=== PATIENT | female | born 1930 | race Caucasian/White ===

== ENCOUNTER 2019-01-14 16:51 | Inpatient (IN) | payer OTHER, MEDICAID ==
[~2019-01-14] VITALS: Ht 152.4 cm; Wt 56.7 kg
[2019-01-14 17:08] VITALS: BP_SYST 155
[2019-01-14 18:02] LABS: ANION GAP 9 (5-15); CALCIUM 8.9 mg/dL (8.4-11.0); CHLORIDE 107 mmol/L (98-107); CREATININE 1.35 mg/dL (0.55-1.30); GLUCOSE 112 mg/dL (70-99); POTASSIUM 4.8 mmol/L (3.5-5.1); SODIUM SERUM 141 mmol/L (136-145); UREA NITROGEN, BLOOD 43 mg/dL (8-21)
[2019-01-14 18:05] LABS: PROTHROMBIN TIME 10.4 SECS (9.5-12.5)
[2019-01-14 18:10] LABS: ALANINE AMINOTRANSFERASE 15 U/L (12-78); ALBUMIN 3.4 g/dL (3.4-4.8); ASPARTATE AMINOTRANSFERASE 13 U/L (10-37); TOTAL BILIRUBIN 0.1 mg/dL (0.0-1.0)
[2019-01-14 18:22] LABS: RED BLOOD CELL COUNT(AUTO) 3.69 MIL/uL (4.2-6.2); WHITE BLOOD COUNT (AUTO) 6.9 K/uL (4.8-10.8)
[2019-01-14 18:23] LABS: HEMATOCRIT 34.3 % (36-48); HEMOGLOBIN 11.1 g/dL (12.0-16.0); LYMPHOCYTES % (AUTO) 27.4 % (20.5-51.5); MEAN CORPUSCULAR HEMOGLOBIN 30 pg (27-31); MEAN CORPUSCULAR HGB CONC 32 % (32-36); MEAN CORPUSCULAR VOLUME 93 fL (79.0-98.0); MONOCYTES % (AUTO) 8.7 % (1.7-9.3); PLATELET COUNT (AUTO) 283 K/uL (130-430); RED CELL DISTRIBUTION WIDTH 13.3 % (9.0-15.0)
[2019-01-14 18:24] LABS: BASOPHILS # (AUTO) 0.1 K/uL (0.0-0.2); BASOPHILS % (AUTO) 1.2 % (0.0-2.0); EOSINOPHILS # (AUTO) 0.5 K/uL (0.0-0.4); EOSINOPHILS % (AUTO) 6.7 % (0.0-4.0); LYMPHOCYTES # (AUTO) 1.9 K/uL (1.0-5.5); MONOCYTES # (AUTO) 0.6 K/uL (0.0-1.0); NEUTROPHILS # (AUTO) 3.9 K/uL (1.8-7.7)
--- NOTE | 2019-01-14 19:07 | NUR ---
Placed in room 2 . Placed on phototypesetting equipment monitor, blood pressure machine and pulse oximeter. To gown for exam. Side rails up.
--- NOTE | 2019-01-14 19:07 | NUR ---
Pt c/o generalized weakness and decreased appetite that has been getting worse over the past couple of weeks. Pt also c/o pain to bilat knees, feet, and shoulders progressively worsening.
[2019-01-14] MEDS ORDERED: ICOS1CAP PO (19:40)
[2019-01-14] MEDS ORDERED: ALEN10TA6 PO (19:40)
[2019-01-14] MEDS ORDERED: RISP0.253 PO (19:40)
[2019-01-14] MEDS ORDERED: HYDR-3698 PO (19:40)
[2019-01-14] MEDS ORDERED: COLE625T9 PO (19:40)
[2019-01-14] MEDS ORDERED: LORA-258 PO (19:40)
[2019-01-14] MEDS ORDERED: ENAL1TAB35 PO (19:40)
--- NOTE | 2019-01-14 19:41 | NUR ---
Medication reconciliation completed with information provided by daughter. Any prior medication reconciliation on file was reviewed and corrected.
--- NOTE | 2019-01-14 20:10 | NUR ---
Dr. Logan at bedside.
[2019-01-14] MEDS ORDERED: NACL 0.9% 1,000 ML IV ONE (20:30)
--- NOTE | 2019-01-14 21:08 | NUR ---
# 20 gauge angiocath placed to LAC. Use of asceptic technique. Opsite placed over site. Blood return noted. Flushed with 10 cc of normal saline. No evidence of infiltration noted. Patient tolerated well.
--- NOTE | 2019-01-14 21:30 | NUR ---
No needs verbalized at this time. Family member at bedside.
--- NOTE | 2019-01-14 22:00 | NUR ---
No needs verbalized at this time.
--- NOTE | 2019-01-14 22:45 | NUR ---
Pt assisted to bedside comode, urine sample collected and sent to lab.
[2019-01-14 23:07] LABS: BILIRUBIN,URINE NEGATIVE (NEGATIVE); BLOOD, URINE NEGATIVE (NEGATIVE); CLARITY/URINE CLEAR (CLEAR); COLOR,URINE YELLOW (YELLOW); GLUCOSE,URINE NEGATIVE (NEGATIVE); KETONES,URINE NEGATIVE (NEGATIVE); LEUKOCYTE ESTERASE ,URINE NEGATIVE (NEGATIVE); NITRITE, URINE NEGATIVE (NEGATIVE); PH,URINE 5.5 (5.0-8.0); PROTEIN URINE NEGATIVE (NEGATIVE); UROBILINOGEN,URINE 0.2 (0.2-1.0)
--- NOTE | 2019-01-15 00:45 | NUR ---
Patient will be admitted to care of Dr. Albrecht. Admitted to Tele unit. Will go to room 104A. Belongings list completed. Summary report printed. Report will be given at bedside.
--- NOTE | 2019-01-15 01:00 | NUR ---
ADMISSION NOTE Received patient from ER via gurney. Patient admitted with diagnosis of Dehydration. Patient is awake, alert, oriented X 2. Patient oriented to hospital room, call light, toileting, pain management and safety-teach back done. Patient informed that BRODERICK Dukes will be primary nurse and that their room number is 104A. Personal belongings checked and Belongings List documented. Call light within reach.
--- NOTE | 2019-01-15 01:05 | NUR ---
Initial RN notes Received pt from from ED. Pt AAOx2, no s/s distress or discomfort noted. IV saline lock L. AC 20G clear, patent. Pt's daughter at bedside. Oriented pt to call light use, pt verbalized understanding. Bed low, locked, alarm on. Will continue to monitor.
[2019-01-15 01:06] VITALS: BP_SYST 164
--- NOTE | 2019-01-15 03:30 | NUR ---
Rounds Pt asleep. Self turns. No s/s distress or discomfort noted. Bed alarm on. Call light within reach. To monitor.
[2019-01-15] MEDS ORDERED: KCL 20 mEq in D5/0.45NS 1000mL 1,000 ML IV ONE (04:41)
[2019-01-15] MEDS: KCL 20 mEq in D5/0.45NS 1000mL 1,000 ML IV SCH ×2 (04:43→17:00)
--- NOTE | 2019-01-15 06:20 | NUR ---
Closing notes Pt asleep, easily arousable. No s/s distress noted. No c/o pain. IVF infusing as ordered L. AC 20G no s/s infiltration noted. Call light within reach. Bed low, locked, bed alarm on. To endorse to dayshift RN.
--- NOTE | 2019-01-15 07:28 | NUR ---
OPENING NOTE: MORNING REPORT WAS TAKEN AT BEDSIDE. PATIENT ON ROOM AIR. IV FLUIDS INFUSING. PATIENT NOT COMPLAINING OF ANY DISTRESS AT THIS TIME. BED ALARM IS ON. CALL LIGHT IS IN REACH. BED IN LOWEST POSITION. WILL CONTINUE TO MONITOR.
[2019-01-15 08:30] VITALS: BP_SYST 153
--- NOTE | 2019-01-15 10:11 | NUR ---
Nutrition Update Vin Scale 18 noted. Pt admitted for dehydration. Diet: mechanical soft BMI: 24.4 kg/m2 RD to follow per nutrition care standards.
--- NOTE | 2019-01-15 10:50 | NUR ---
NOTE: PATIENT LAYING DOWN IN BED WITH DAUGHTER AT BEDSIDE. PATIENT COMPLAINING OF PAIN IN SHOULDER. WILL PAGE DR COHEN. IV FLUIDS INFUSING. PATIENT HAS NO FURTHER REQUESTS AT MOMENT. WILL CONTINUE TO MONITOR.
[2019-01-15 12:08] VITALS: BP_SYST 153
[2019-01-15] MEDS: ACETAMINOPHEN 500 MG TABLET PO PRN (12:08)
--- NOTE | 2019-01-15 12:10 | NUR ---
NOTE: PATIENT SITTING IN BED EATING LUNCH. PATIENT COMPLAINING OF PAIN IN BOTH SHOULDERS BUT WORST IN RIGHT. DR COHEN CALLED BACK AND ORDERED TYLENOL. GAVE IT TO PATIENT. PATIENT HAS NO FURTHER REQUESTS AT MOMENT. WILL CONTINUE TO MONITOR.
[2019-01-15] MEDS ORDERED: LISINOPRIL 10 MG TABLET (PRINIVIL) PO ONE (15:00)
--- NOTE | 2019-01-15 15:05 | NUR ---
NOTE: PATIENT SITTING IN BED WATCHING TV. PATIENT NOT COMPLAINING OF ANY DISTRESS. DAUGHTER AT BEDSIDE. GAVE PATIENT SCHEDULED MEDICATION. IV FLUIDS INFUSING. CALL LIGHT IS IN REACH. WILL CONTINUE TO MONITOR.
[2019-01-15 16:50] VITALS: BP_SYST 148
--- NOTE | 2019-01-15 17:02 | NUR ---
NOTE: PATIENT ASSISTED TO RESTROOM. DAUGHTER AT BEDSIDE. PATIENT HELPED BACK TO BED. PATIENT POSITIONED FOR COMFORT. IV FLUIDS INFUSING. PATIENT HAS NO FURTHER REQUESTS AT MOMENT. WILL CONTINUE TO MONITOR.
--- NOTE | 2019-01-15 18:18 | NUR ---
CLOSING NOTE: PATIENT WAS ASSISTED TO RESTROOM. PATIENT WAS THEN GIVEN A SPONGE BATH. PATIENT WAS THEN ASSISTED TO BED. DAUGHTER AT BEDSIDE. IV FLUIDS INFUSING. PATIENT ON ROOM AIR. CALL LIGHT IS IN REACH. DAUGHTER REFUSED BED ALARM BECAUSE SHE TAKEN HER TO RESTROOM. DAUGHTER SAID SHE WOULD LET US KNOW WHEN SHE LEAVES SO WE CAN PUT BED ALARM ON. WILL CONTINUE TO MONITOR AND GIVE REPORT TO RESIDENCY PROGRAM COORDINATOR NURSE.
--- NOTE | 2019-01-15 18:22 | NUR ---
MD: PATIENT GETTING RESTLESS AND DOESNT WANT TO STAY IN BED. PAGED DR COHEN FOR PRN'S. DAUGHTER STATES THAT PATIENT TAKES RISPERDAL PRN FOR AGITATION NOT SCHEDULED.
--- NOTE | 2019-01-15 19:13 | NUR ---
MD: DR COHEN CALLED BACK. DID NOT WANT TO ORDER ATIVAN PRN. ORDERED RISPERIDONE ONE TIME DOSE NOW. ENDORSED CARE TO NIGHT NURSE DEJAN.
[2019-01-15] MEDS ORDERED: risperiDONE 0.25 MG TABLET (RisperDAL) PO ONE (19:15)
--- NOTE | 2019-01-15 19:45 | NUR ---
Opening note/PT confused Pt awake, confused and wanting to go out, walk around and look for her daughter. VSS. Informed pt her family left for the night and oriented pt to place and time. Pt refused to take Risperdal at this time. Provided wheelchair for pt to sit in. To monitor.
[2019-01-15 20:15] VITALS: BP_SYST 142
--- NOTE | 2019-01-15 20:30 | NUR ---
Back in room Pt back in room and Risperdal PO given x 1 order with applesauce. But pt still wanting to walk around. Security aware. Safety measures maintained. To monitor.
[2019-01-15] MEDS ORDERED: HALOPERIDOL LACTATE 5 MG/ML VIAL IM SCH (21:00)
--- NOTE | 2019-01-15 21:20 | NUR ---
Bathroom Pt assisted to the bathroom, no distress noted. Pt still restless, provided wheelchair for pt to sit and coloring pad for distraction. To monitor.
--- NOTE | 2019-01-15 22:37 | NUR ---
Haldol given Pt awake. VSS, SR on the monitor. Haldol 2mg IM administered L. deltoid. Pt tolerated well in bed. Bed alarm on. Will monitor pt closely.
--- NOTE | 2019-01-15 23:00 | NUR ---
Rounds Pt awake, confused and requesting to go bathroom. Educated pt on safety and bedpan provided because Haldol was just given. Pt voided. To monitor.
[2019-01-16 00:47] VITALS: BP_SYST 129
--- NOTE | 2019-01-16 03:45 | NUR ---
Bathroom Pt alert, awake, confused. No s/s distress noted. Assisted pt to the bathroom, pt voided. Assisted back to bed. Call light within reach. Bed alarm on. To monitor.
[2019-01-16 07:52] LABS: ANION GAP 2 (5-15); CALCIUM 9.1 mg/dL (8.4-11.0); CHLORIDE 109 mmol/L (98-107); CREATININE 1.07 mg/dL (0.55-1.30); GLUCOSE 94 mg/dL (70-99); PHOSPHORUS 2.8 mg/dL (2.7-4.5); POTASSIUM 5.5 mmol/L (3.5-5.1); SODIUM SERUM 136 mmol/L (136-145); UREA NITROGEN, BLOOD 32 mg/dL (8-21)
[2019-01-16 08:46] LABS: WHITE BLOOD COUNT (AUTO) 8.8 K/uL (4.8-10.8)
[2019-01-16 08:47] LABS: BASOPHILS % (AUTO) 1.2 % (0.0-2.0); EOSINOPHILS % (AUTO) 4.8 % (0.0-4.0); HEMATOCRIT 29.7 % (36-48); HEMOGLOBIN 9.7 g/dL (12.0-16.0); LYMPHOCYTES # (AUTO) 2.1 K/uL (1.0-5.5); LYMPHOCYTES % (AUTO) 23.7 % (20.5-51.5); MEAN CORPUSCULAR HEMOGLOBIN 30 pg (27-31); MEAN CORPUSCULAR HGB CONC 33 % (32-36); MEAN CORPUSCULAR VOLUME 93 fL (79.0-98.0); MONOCYTES % (AUTO) 8.7 % (1.7-9.3); NEUTROPHILS # (AUTO) 5.4 K/uL (1.8-7.7); NEUTROPHILS % (AUTO) 61.6 % (40.0-70.0); PLATELET COUNT (AUTO) 242 K/uL (130-430); RED CELL DISTRIBUTION WIDTH 13.3 % (9.0-15.0)
[2019-01-16 08:48] LABS: BASOPHILS # (AUTO) 0.1 K/uL (0.0-0.2); EOSINOPHILS # (AUTO) 0.4 K/uL (0.0-0.4); MONOCYTES # (AUTO) 0.8 K/uL (0.0-1.0)
[2019-01-16] MEDS: VASCEPA 1 GM PO SCH ×2 (09:00→20:07)
[2019-01-16] MEDS: LISINOPRIL 10 MG TABLET (PRINIVIL) PO SCH (09:00)
[2019-01-16] MEDS: WELCHOL 625 MG PO SCH ×2 (09:00→20:08)
[2019-01-16] MEDS: risperiDONE 0.25 MG TABLET (RisperDAL) PO SCH (09:00)
[2019-01-16 09:50] VITALS: BP_SYST 146
[2019-01-16] MEDS: KCL 20 mEq in D5/0.45NS 1000mL 1,000 ML IV SCH (09:55)
[2019-01-16] MEDS: D5/0.45 NS 1,000 ML IV SCH ×2 (11:00→14:54)
[2019-01-16 11:24] VITALS: BP_SYST 129
--- NOTE | 2019-01-16 12:00 | NUR ---
RN ROUNDS PATIENT IS RESTING COMFORTABLY IN BED. NO S/S OF DISTRESS OR SOB. PATIENT IS AWAKE AND ALERT. FAMILY IS AT BEDSIDE. NO NEEDS EXPRESSED AT THIS TIME. CALL LIGHT IN REACH, BED IN LOWEST POSITION, AND WILL CONTINUE TO MONITOR.
--- NOTE | 2019-01-16 12:59 | NUR ---
Dietitian Recommendations * Recommend mechanical soft diet w/ Ensure High Protein BID (ONS provides an additional 320 kcal/day and 32 gm protein/day) * Adhere to pt food preferences LP, RD Please refer to Nutrition Assessment for details.
--- NOTE | 2019-01-16 14:20 | NUR ---
NEW IV INSERTED ON RIGHT HAND #22 GAUGE.
[2019-01-16 15:30] VITALS: BP_SYST 145
--- NOTE | 2019-01-16 16:00 | NUR ---
RN ROUNDS PATIENT IS RESTING COMFORTABLY IN BED. NO S/S OF DISTRESS OR SOB. PATIENT IS AWAKE AND ALERT. FAMILY IS AT BEDSIDE. IVF INFUSING, TOLERATING WELL. NO OTHER NEEDS EXPRESSED AT THIS TIME. CALL LIGHT IN REACH, BED IN LOWEST POSITION, AND WILL CONTINUE TO MONITOR.
--- NOTE | 2019-01-16 18:15 | NUR ---
CLOSING NOTE: PATIENT IS RESTING COMFORTABLY IN BED. NO S/S OF DISTRESS OR SOB. PATIENT IS AWAKE AND ALERT. ASSISTED BACK TO BED. PATIENT ON ROOM AIR. IVF INFUSING. ALL NEEDS MET DURING SHIFT. CALL LIGHT IN REACH, BED IN LOWEST POSITION, AND WILL GIVE REPORT TO NIGHT NURSE.
[2019-01-16 19:10] VITALS: BP_SYST 114
--- NOTE | 2019-01-16 19:10 | NUR ---
Start of Shift Assessment Received patient in bed awake but confused. No s/s of any distress noted. Patient is trying to get up from bed without calling for assistance. Reorient patient to place and time. IV noted to L hand g22 no infiltrate flushing well. Will notify Dr Albrecht. Call light in reach, bed alarm on and side rails up x3. Will closely monitor.
[2019-01-16] MEDS ORDERED: HALOPERIDOL LACTATE 5 MG/ML VIAL IM ONE (21:15)
--- NOTE | 2019-01-16 22:18 | NUR ---
Admin Rabia HATFIELD Patient was very disoriented and wander around the hallway looking for family. Dr Albrecht who is present in the floor ordered Rabia HATFIELD. Will cont to monitor.
--- NOTE | 2019-01-17 | NUR ---
Rounds Assisted to bathroom and safely back to bed. No s/s of any distress noted. Call light in reach, will cont to monitor.
[2019-01-17 00:52] VITALS: BP_SYST 140
--- NOTE | 2019-01-17 02:00 | NUR ---
Rounds Patient is resting comfortably in bed with eyes close at this time. No s/s of any distress noted. Call light in reach, will cont to monitor.
--- NOTE | 2019-01-17 06:57 | NUR ---
End of shift note Patient is resting comfortably at this time. No s/s of any distress noted. All needs met and anticipated by noc nurses. Endorse to incoming nurse
[2019-01-17 08:00] VITALS: BP_SYST 149
--- NOTE | 2019-01-17 08:00 | NUR ---
AM NOTES IN BED, AWAKE. CONFUSED.SPEAK TAIWANESE ONLY. EATING BREAKFAST, ABLE TO FEED HERSELF. IVF INFUSING WELL. AMBULATE TO THE BATHROOM WITH MINIMAL ASSIST. SAFETY PRECAUTION OBSERVED. BED ALARM ON. CALL LIGHT WITHIN REACH. WILL CONTINUE TO MONITOR.
[2019-01-17 08:08] LABS: ANION GAP 5 (5-15); CALCIUM 9.2 mg/dL (8.4-11.0); CHLORIDE 108 mmol/L (98-107); CREATININE 1.08 mg/dL (0.55-1.30); GLUCOSE 107 mg/dL (70-99); POTASSIUM 4.8 mmol/L (3.5-5.1); SODIUM SERUM 136 mmol/L (136-145); UREA NITROGEN, BLOOD 27 mg/dL (8-21)
[2019-01-17 08:09] LABS: HEMATOCRIT 33.5 % (36-48); HEMOGLOBIN 10.8 g/dL (12.0-16.0); MEAN CORPUSCULAR HEMOGLOBIN 30 pg (27-31); MEAN CORPUSCULAR VOLUME 92 fL (79.0-98.0); RED BLOOD CELL COUNT(AUTO) 3.62 MIL/uL (4.2-6.2); WHITE BLOOD COUNT (AUTO) 7.3 K/uL (4.8-10.8)
[2019-01-17 08:10] LABS: BASOPHILS # (AUTO) 0.1 K/uL (0.0-0.2); BASOPHILS % (AUTO) 1.2 % (0.0-2.0); EOSINOPHILS # (AUTO) 0.6 K/uL (0.0-0.4); EOSINOPHILS % (AUTO) 8.3 % (0.0-4.0); LYMPHOCYTES # (AUTO) 1.9 K/uL (1.0-5.5); LYMPHOCYTES % (AUTO) 25.5 % (20.5-51.5); MEAN CORPUSCULAR HGB CONC 32 % (32-36); MONOCYTES # (AUTO) 0.5 K/uL (0.0-1.0); MONOCYTES % (AUTO) 7.4 % (1.7-9.3); NEUTROPHILS # (AUTO) 4.2 K/uL (1.8-7.7); NEUTROPHILS % (AUTO) 57.6 % (40.0-70.0); PLATELET COUNT (AUTO) 265 K/uL (130-430); RED CELL DISTRIBUTION WIDTH 13.1 % (9.0-15.0)
[2019-01-17] MEDS: LISINOPRIL 10 MG TABLET (PRINIVIL) PO SCH (08:26)
[2019-01-17] MEDS: risperiDONE 0.25 MG TABLET (RisperDAL) PO SCH (08:27)
[2019-01-17] MEDS: VASCEPA 1 GM PO SCH ×2 (08:29→21:38)
[2019-01-17] MEDS: WELCHOL 625 MG PO SCH ×2 (08:29→21:36)
--- NOTE | 2019-01-17 12:00 | NUR ---
Notes In bed, resting. family at bedside. Denies any pain or discomfort. IVF infusing well. safety precaution observed. call light within reach. will monitor.
[2019-01-17 12:04] VITALS: BP_SYST 140
--- NOTE | 2019-01-17 14:06 | NUR ---
Notes Resting in bed, family at bedside. denies any pain or discomfort. Seen by Dr. Albrecht at bedside. safety precaution observed. will monitor.
[2019-01-17] MEDS: D5/0.45 NS 1,000 ML IV SCH (15:22)
[2019-01-17] MEDS: ACETAMINOPHEN 500 MG TABLET PO PRN (15:37)
--- NOTE | 2019-01-17 16:04 | NUR ---
Notes- In bed, family at bedside. complaining of mild headache. medicated with tylenol. no distress noted.
[2019-01-17 16:12] VITALS: BP_SYST 128
--- NOTE | 2019-01-17 18:37 | NUR ---
Notes- Resting in bed, denies any pain or discomfort. IVF infusing well. safety precaution observed. bed alarm on. all needs meet. needs attended. endorse.
--- NOTE | 2019-01-17 19:05 | NUR ---
REPORT: BEDSIDE REPORT DONE FROM AM RN. PATIENT IN BED SLEEPING. BREATHING PATTERN REGULAR. ROOM AIR. IVF INFUSING AT 75ML/HR. CALL LIGHT WITHIN REACH. BED IN LOW POSITION. BED ALARM ON.
--- NOTE | 2019-01-17 19:50 | NUR ---
VOID: SEEN AMBULATING TO BATHROOM WITH ASSIST BY CARPENTER MATE.
[2019-01-17 20:50] VITALS: BP_SYST 166
[2019-01-17] MEDS ORDERED: HALOPERIDOL LACTATE 5 MG/ML VIAL IM PRN (21:15)
--- NOTE | 2019-01-17 21:50 | NUR ---
VITAL SIGNS: PATIENT IN BED AWAKE. KNOWS NAME ONLY. FORGETFUL OF TIME AND PLACE. RE ORIENTATION DONE. SPEAKS EQUATORIAL [place]INE[place] AND JAPANESE.BP SLIGHT ELEVATED. DENIES PAIN AND SOB. PLEASANTLY CONFUSE.IVF SITE CLEAR.WILL MONITOR CLOSELY. Addendum: 01/18/19 at 0135 by Olya Tipton RN TIME OF THIS NOTE IS 2049HR.
--- NOTE | 2019-01-17 23:00 | NUR ---
void: patient calm. verbalized need to void. assisted to bathroom,ambulated slowly.
--- NOTE | 2019-01-18 02:30 | NUR ---
assisted to bathroom by home theatre technician to void. no BM.
--- NOTE | 2019-01-18 04:30 | NUR ---
NEW IV BAG HUNG. RESTING QUITELY WITH EYES CLOSE. CALM.
[2019-01-18] MEDS: D5/0.45 NS 1,000 ML IV SCH (05:19)
[2019-01-18 06:08] VITALS: BP_SYST 149
--- NOTE | 2019-01-18 06:16 | NUR ---
CLOSING: NO AGITATION WHOLE SHIFT. NO HALDOL GIVEN. BED ALARM HAS BEEN ON.VERBALIZED TO VOID WITH ASSIST. NO ACUTE DISTRESS. SLEPT AT LONG INTERVALS. IVF HAS BEEN INFUSING 75ML/HR. SAFETY MEASURES OBSERVED. ALL NEEDS WERE ATTENDED. SELF TURN. CALM DURING THE SHIFT. WILL ENDORSE CARE TO INCOMING RN. CALL LIGHT NEAR BY.
--- NOTE | 2019-01-18 07:44 | NUR ---
AWAKE, BUT CONFUSED, A/OX1. HEBREW ONLY. EATING BREAKFAST, ABLE TO FEED HERSELF. D51/2NS AT RIGHT HAND, INFUSING AT 100ML/HR. BED ALARM ON. CALL LIGHT WITHIN REACH. BED LOCKED AT THE LOWEST POSITION, WILL CONTINUE TO MONITOR.
[2019-01-18 08:00] VITALS: BP_SYST 135
[2019-01-18] MEDS: risperiDONE 0.25 MG TABLET (RisperDAL) PO SCH (08:30)
[2019-01-18] MEDS: LISINOPRIL 10 MG TABLET (PRINIVIL) PO SCH (08:30)
[2019-01-18] MEDS: WELCHOL 625 MG PO SCH (08:31)
[2019-01-18] MEDS: VASCEPA 1 GM PO SCH (08:31)
--- NOTE | 2019-01-18 09:48 | NUR ---
Her daughter is seen at bedside. No signs of distress noted.
--- NOTE | 2019-01-18 12:00 | NUR ---
patient is eating lunch, with daughter at bedside.
[2019-01-18 12:28] VITALS: BP_SYST 143
--- NOTE | 2019-01-18 13:28 | NUR ---
Discharge Planning: [facility] faxed pt referral to [facility] (f [phone] p [phone]) per Mike pt accated to room 38A. [facility] made pt nurse aware and that a discharge order is needed. Addendum: 01/18/19 at 1532 by Alma Delia Rhodes DP [facility] (f [phone] p [phone]) Rm 38A , transportation arranged with [facility] ([phone]) 6:30pm P/U. Patient packet taken to nurse station, nurse made aware.
[2019-01-18] MEDS ORDERED: MAGNESIUM SULFATE 50 ML IV ONE (15:00)
--- NOTE | 2019-01-18 15:32 | NUR ---
Patient is walking to the bathroom with the assistance of the family and standby assistance of RN.
[2019-01-18 15:48] VITALS: BP_SYST 143
[2019-01-18 17:06] VITALS: BP_SYST 143
--- NOTE | 2019-01-18 19:17 | NUR ---
PT TRANSFERRED Report given to Bibi at [facility]. Transfer packet with Transfer Orders and Medication Reconciliation form given to EMT with report. Exitcare provided. [facility] ID band removed, replaced with ID band with pt's name and . IV catheter removed, intact and dressing applied, no active bleeding. All belongings sent with patient. Patient left floor via gurney escorted by EMT in no distress.
[2019-01-20] MEDS ORDERED: ALENDRONATE SODIUM 10 MG TABLET (FOSAMAX) PO SCH (09:00)
== END 2019-01-18 19:05 | DRG 682 ==
LOC: SED 16:51 → STU 01-15 00:10 → SMU 01-17 16:03
PROVIDERS: ADMIT Family Medicine; ATTEND Family Medicine
DX: N17.9 Acute kidney failure, unspecified (principal); G93.41 Metabolic encephalopathy; E86.0 Dehydration; I10 Essential (primary) hypertension; M19.90 Unspecified osteoarthritis, unspecified site; R29.6 Repeated falls; F03.90 Unspecified dementia, unspecified severity, without behavioral disturbance, psychotic disturbance, mood disturbance, and anxiety; Z79.899 Other long term (current) drug therapy
CPT/HCPCS: 36415; 71045; 80048; 80053; 81003; 83605; 83735-TC; 83880; 84100-TC; 84484; 85025; 85610-TC; 85730-TC; 87040-TC; 87086; 93005; 96360; 97110-GP; 97116-GP; 97530-GP; 99285; G0378; J1630; J3475